=== PATIENT | female | born 1970 | race African-American/Black ===

== ENCOUNTER 2021-09-13 01:56 | Observation (INO) ==
[2021-09-13] MEDS ORDERED: ONDANSETRON 4 MG/2 ML VIAL IV STA (02:20)
[2021-09-13] MEDS ORDERED: hydrALAZINE 20 MG/1 ML VIAL IV STA (02:20)
[2021-09-13] MEDS ORDERED: MORPHINE 2 MG/1 ML SYRINGE IV STA (02:21)
[2021-09-13] MEDS ORDERED: CLINDAMYCIN INJ 900 MG/50 ML PREMIX IV STA (02:22)
[2021-09-13 03:14] LABS: Alanine Aminotransferase 37 U/L (13-56); Alkaline Phosphatase 90 U/L (45-117); Aspartate Amino Transferase 20 U/L (0-37); Bilirubin,Total < 0.39 MG/DL (0.20-1.00); Blood Urea Nitrogen 30 MG/DL (7-18); Calcium 9.8 MG/DL (8.5-10.1); Carbon Dioxide 35 MMOL/L (21-32); Estimated Glom Filtration Rate 37 ML/MIN; Glucose 162 MG/DL (74-106); Osmolality,Calculated 288.4 MOS/KG (273-304); Potassium 3.3 MMOL/L (3.5-5.1); Sodium 140 MMOL/L (136-145); Total Protein 8.9 G/DL (6.4-8.2)
[2021-09-13 03:26] LABS: Basophils % 0.4 % (0.0-0.8); Eosinophils # 0.3 10*3/uL (0.0-0.87); Eosinophils % 2.6 % (0.00-10.9); Hematocrit 41.9 VOL% (35.7-47.0); Immature Granulocytes % 0.4 %; Immature Granulocytes Absolute 0.04 #; Lymphocytes # 4.2 10*3/uL (1.4-4.0); Lymphocytes % 38.6 % (21.3-54.2); Mean Corpuscular HGB Conc 30.1 GM/DL (32-36); Mean Corpuscular Volume 75.9 FL (87-102); Mean Platelet Volume 13.4 FL (9.6-12.0); Monocytes % 7.6 % (1.7-12.7); Neutrophils % 50.4 % (38.7-73.9); Platelet Count 326 T/CUMM (130-400); Red Blood Count 5.52 MC/CUMM (3.8-5.5); Red Cell Distribution Width 14.9 % (9.3-17.3); White Blood Count 10.8 T/CUMM (4-12)
[2021-09-13 03:32] LABS: Hemoglobin 12.6 GM/DL (12.0-16.0); Hypochromia 1+
[2021-09-13 03:33] LABS: Microcytosis 1+; Ovalocytes Slight; Platelet Estimate Normal
[2021-09-13] MEDS ORDERED: LABETALOL 100 MG/20 ML VIAL IV STA (03:36)
[2021-09-13 03:46] LABS: Eosinophils 1 % (0-10); Lymphocytes 38 % (20-55); Segmented Neutrophils 59 % (50-85); Total Cells Counted 100
[2021-09-13] MEDS ORDERED: niCARdipine INJ 25 MG in SODIUM CHLORIDE 0.9% 240 ML IV PRN (04:23)
[2021-09-13] MEDS ORDERED: KETOROLAC 30 MG/1 ML VIAL ONE (04:52)
[2021-09-13] MEDS ORDERED: KETOROLAC 30 MG/1 ML VIAL IV STA (04:58)
[2021-09-13] MEDS ORDERED: cloNIDine 0.1 MG TABLET PO STA (05:30)
[2021-09-13] MEDS ORDERED: MORPHINE 2 MG/1 ML SYRINGE IV PRN (06:14)
[2021-09-13] MEDS ORDERED: ONDANSETRON 4 MG/2 ML VIAL IV PRN (06:14)
[2021-09-13] MEDS ORDERED: GLUCAGON 1 MG VIAL IM PRN ×2 (06:14→06:48)
[2021-09-13] MEDS ORDERED: hydrALAZINE 20 MG/1 ML VIAL IV PRN (06:14)
[2021-09-13] MEDS ORDERED: DEXTROSE 10% 250 ML BAG IV PRN ×2 (06:25→06:48)
[2021-09-13] MEDS: LACTATED RINGERS 1,000 ML IV SCH ×2 (06:47→17:41)
[2021-09-13] MEDS ORDERED: SODIUM CHLORIDE 0.9% 1,000 ML IV SCH (07:00)
[2021-09-13 08:06] LABS: Bilirubin,Urine Negative (Negative); Blood, Urine Negative (Negative); Glucose,Urine (UA) 50 mg/dL (Negative); Ketones,Urine Negative (Negative); Mucus,Urine Occasional /LPF (Occasional); Nitrite,Urine Negative (Negative); Protein,Urine 100 MG/DL; RBC,Urine 1 /HPF (0-4); Squamous Epithelial Cell,Urine Occasional /HPF (0-10); Urine Appearance CLEAR (Clear); Urine Color Straw (Yellow); Urine Specific Gravity 1.009 (1.001-1.035); Urine Urobilinogen < 2.0 EU/DL (<2.0)
[2021-09-13 08:21] LABS: Risk Ratio 5.64; Thyroid Stimulating Hormone 6.01 uIU/ml (0.358-3.74)
[2021-09-13] MEDS: INSULIN REGULAR 100 UNIT/ML SUBCUT SCH ×4 (08:35→21:39)
[2021-09-13] MEDS: METOPROLOL TARTRATE 25 MG TABLET PO SCH ×2 (08:48→21:15)
[2021-09-13] MEDS: DOCUSATE SODIUM 100 MG CAPSULE PO SCH ×2 (08:48→21:16)
[2021-09-13] MEDS: ENOXAPARIN 40 MG/0.4 ML SYRINGE SUBCUT SCH (08:49)
[2021-09-13] MEDS: PANTOPRAZOLE 40 MG TABLET PO SCH (08:50)
[2021-09-13] MEDS: amLODIPine 10 MG TABLET PO SCH (08:50)
[2021-09-13] MEDS: cloNIDine 0.1 MG TABLET PO SCH ×2 (08:56→21:16)
[2021-09-13] MEDS: CLINDAMYCIN 150 MG CAPSULE PO SCH ×2 (14:31→18:40)
[2021-09-13] MEDS: ACETAMINOPHEN 325 MG TABLET PO PRN (16:26)
[2021-09-14] MEDS: CLINDAMYCIN 150 MG CAPSULE PO SCH ×3 (00:32→11:41)
[2021-09-14] MEDS: LACTATED RINGERS 1,000 ML IV SCH ×2 (04:01→13:51)
[2021-09-14 05:40] LABS: Basophils % 0.2 % (0.0-0.8); Eosinophils # 0.3 10*3/uL (0.0-0.87); Eosinophils % 3.3 % (0.00-10.9); Hematocrit 36.1 VOL% (35.7-47.0); Hemoglobin 10.7 GM/DL (12.0-16.0); Immature Granulocytes % 0.2 %; Immature Granulocytes Absolute 0.02 #; Lymphocytes # 3.6 10*3/uL (1.4-4.0); Lymphocytes % 43.1 % (21.3-54.2); Mean Corpuscular HGB Conc 29.6 GM/DL (32-36); Mean Corpuscular Volume 77.5 FL (87-102); Mean Platelet Volume 12.2 FL (9.6-12.0); Monocytes % 6.9 % (1.7-12.7); Neutrophils % 46.3 % (38.7-73.9); Platelet Count 270 T/CUMM (130-400); Red Blood Count 4.66 MC/CUMM (3.8-5.5); Red Cell Distribution Width 15.3 % (9.3-17.3); White Blood Count 8.4 T/CUMM (4-12)
[2021-09-14 05:56] LABS: Calcium 9.2 MG/DL (8.5-10.1); Osmolality,Calculated 279.1 MOS/KG (273-304); Potassium 2.9 MMOL/L (3.5-5.1)
[2021-09-14 06:08] LABS: Hypochromia 1+; Microcytosis 1+; Platelet Estimate Normal
[2021-09-14] MEDS ORDERED: MAGNESIUM SULF RIDER 4 GM/100 ML PREMIX IV PRN (07:09)
[2021-09-14] MEDS ORDERED: MAGNESIUM SULF RIDER 2 GM/50 ML PREMIX IV PRN (07:09)
[2021-09-14] MEDS ORDERED: POTASSIUM CHLORIDE 20 MEQ TABLET PO PRN (07:09)
[2021-09-14] MEDS: INSULIN REGULAR 100 UNIT/ML SUBCUT SCH ×2 (09:20→12:16)
[2021-09-14] MEDS: METOPROLOL TARTRATE 25 MG TABLET PO SCH (09:21)
[2021-09-14] MEDS: ENOXAPARIN 40 MG/0.4 ML SYRINGE SUBCUT SCH (09:21)
[2021-09-14] MEDS: cloNIDine 0.1 MG TABLET PO SCH (09:21)
[2021-09-14] MEDS: DOCUSATE SODIUM 100 MG CAPSULE PO SCH (09:21)
[2021-09-14] MEDS: amLODIPine 10 MG TABLET PO SCH (09:22)
[2021-09-14] MEDS: PANTOPRAZOLE 40 MG TABLET PO SCH (09:22)
[2021-09-14] MEDS: POTASSIUM CHLORIDE 20 MEQ TABLET PO SCH ×2 (09:31→11:25)
[2021-09-14 13:01] VITALS: BP 146/85
[2021-09-14] MEDS: ACETAMINOPHEN 325 MG TABLET PO PRN (13:30)
== END 2021-09-14 13:40 | disposition home or self-care (01) ==
LOC: EDBD → EDUNIT# → SUATTDRO → N.EDINP 01:56 → N.ED 01:56 → N.EDINP 12:57 → N.TELEN 12:58
PROVIDERS: ADMIT Internal Medicine; ATTEND Internal Medicine